=== PATIENT | female | born 1970 | race Caucasian/White ===

== ENCOUNTER → 2020-03-13 16:16 | Outpatient (CLI) | payer OTHER, SELFPAY ==
[2020-03-13 16:43] VITALS: BMI 23.3
== END ==
PROVIDERS: PCP Internal Medicine; Visit Provider Nurse Practitioner Family
DX: Z11.1 Encounter for screening for respiratory tuberculosis (principal)
CPT/HCPCS: 86580

== ENCOUNTER → 2020-04-01 18:43 | Outpatient (CLI) | payer OTHER, SELFPAY | PROVIDERS: PCP Internal Medicine; Visit Provider Nurse Practitioner Family | DX: Z11.1 Encounter for screening for respiratory tuberculosis (principal) ==

== ENCOUNTER 2023-03-13 11:54 | Emergency (ER) | payer BC, SELFPAY ==
[2023-03-13 12:00] VITALS: BMI 22.3
[2023-03-13 12:05] VITALS: BP 136/81; PULSE 70; RESP 19; TEMP 36.6; O2SAT 98; BMI 22.3
[2023-03-13 12:16] VITALS: BP 136/81; PULSE 70; RESP 19; TEMP 36.7; O2SAT 98
== END 2023-03-13 12:22 | disposition home or self-care (01) ==
PROVIDERS: Emergency Provider Nurse Practitioner; PCP Internal Medicine
DX: Z20.3 Contact with and (suspected) exposure to rabies (principal); Z29.14 Encounter for prophylactic rabies immune globulin
CPT/HCPCS: 90471; 90675; 96372; 99212; G0463

== ENCOUNTER 2023-03-17 10:46 | Emergency (ER) | payer BC, SELFPAY ==
[2023-03-17 10:51] VITALS: BP 134/77; PULSE 69; RESP 18; TEMP 36.7; O2SAT 97; BMI 25.6
[2023-03-17 11:00] VITALS: BP 134/77; PULSE 69; RESP 18; TEMP 36.7; O2SAT 97
== END 2023-03-17 11:08 | disposition home or self-care (01) ==
PROVIDERS: Emergency Provider Nurse Practitioner; PCP Internal Medicine
DX: Z20.3 Contact with and (suspected) exposure to rabies (principal); Z29.14 Encounter for prophylactic rabies immune globulin
CPT/HCPCS: 90471; 90675; 96372; 99212; G0463